=== PATIENT | female | born 1950 | race Caucasian/White ===

== ENCOUNTER → 2017-03-12 | Outpatient (CLI) | payer BC ==
[2013-08-30 17:34] VITALS: BP 139/60
== END ==
LOC: MAMMO 14:22
DX: Z12.31 Encounter for screening mammogram for malignant neoplasm of breast (principal)
CPT/HCPCS: G0202

== ENCOUNTER → 2017-03-14 | Outpatient (CLI) | payer BC ==
[2013-08-30 17:34] VITALS: BP 139/60
== END ==
LOC: LAB 10:03
DX: C50.411 Malignant neoplasm of upper-outer quadrant of right female breast (principal)

== ENCOUNTER 2018-03-06 09:31 | Observation (INO) | payer BC ==
[~2018-03-06] VITALS: Ht 165.1 cm; Wt 51.3 kg
[2018-03-06] MEDS ORDERED: DOXYCYCLINE MO100 M3 PO (09:37)
[2018-03-06] MEDS ORDERED: FLONASE ALLERG9.9 ML NS (09:37)
[2018-03-06] MEDS ORDERED: PREDNISONE20 M1 PO (09:37)
[2018-03-06] MEDS ORDERED: ZANTAC150 M1 PO (09:37)
[2018-03-06 10:42] LABS: URINE WBC 0 /hpf (0-3)
[2018-03-06 10:45] LABS: EOS % 0.2 % (1.0-5.0); HEMATOCRIT 38.4 % (37.0-47.0); HEMOGLOBIN 12.9 g/dL (12.5-16.0); MEAN CELL VOLUME 80 fl (78-100); MEAN CORPUSCULAR HEMOGLOBIN 27 pg (27-31); MEAN CORPUSCULAR HGB CONC 34 g/dL (33-37); MEAN PLATELET VOLUME 9.4 fl (7.4-10.4); MONO # 0.5 (0.20-0.80); NEU # 3.6 (1.40-6.50); PLATELET COUNT 215 K/mm3 (130-400); RED BLOOD COUNT 4.78 M/mm3 (4.10-5.30); RED CELL DISTRIBUTION WIDTH 13.2 % (11.5-14.5); WHITE BLOOD COUNT 4.8 K/mm3 (4.8-10.8)
[2018-03-06 10:55] LABS: ALBUMIN 4.5 g/dL (3.5-5.0); BUN/CREATININE RATIO 15.9 (6.0-26.0); CALCIUM 10.1 mg/dL (8.4-10.2); LYMPH# 0.6 (1.50-4.00); POTASSIUM 3.5 mmol/L (3.6-5.0); TOTAL BILIRUBIN 0.4 mg/dL (0.2-1.3); TOTAL PROTEIN 7.9 g/dL (6.3-8.2)
[2018-03-06 11:05] LABS: PH-URINE 7.5 (5.0 - 8.0); URINE APPEARANCE CLEAR; URINE BILIRUBIN NEGATIVE (NEGATIVE); URINE BLOOD NEGATIVE (NEGATIVE); URINE COLOR LT YELLOW; URINE GLUCOSE NEGATIVE (NEGATIVE); URINE KETONE NEGATIVE (NEGATIVE); URINE LEUKOCYTE ESTERASE NEGATIVE (NEGATIVE); URINE NITRATE NEGATIVE (NEGATIVE); URINE PROTEIN(semi-quant) TRACE mg/dL (NEGATIVE); URINE UROBILINOGEN NORMAL (NORMAL)
[2018-03-06 11:43] LABS: ERYTHROCYTE SEDIMENTATION RATE 12 mm/hr (0-30)
[2018-03-06 15:46] VITALS: BP 126/56
[2018-03-06 16:03] VITALS: BP 126/56
[2018-03-06 18:29] VITALS: BP 133/75
[2018-03-06 23:03] LABS: HEPATITIS C ANTIBODY Negative (())
[2018-03-06 23:04] VITALS: BP 123/75
[2018-03-07 03:13] VITALS: BP 123/66
[2018-03-07 06:40] VITALS: BP 147/69
[2018-03-07 07:47] LABS: HEMATOCRIT 37.6 % (37.0-47.0); HEMOGLOBIN 12.3 g/dL (12.5-16.0); LYMPH# 0.8 (1.50-4.00); MEAN CELL VOLUME 81 fl (78-100); MEAN CORPUSCULAR HEMOGLOBIN 27 pg (27-31); MEAN CORPUSCULAR HGB CONC 33 g/dL (33-37); MEAN PLATELET VOLUME 9.3 fl (7.4-10.4); MONO # 0.4 (0.20-0.80); NEU # 1.6 (1.40-6.50); PLATELET COUNT 193 K/mm3 (130-400); RED BLOOD COUNT 4.63 M/mm3 (4.10-5.30); RED CELL DISTRIBUTION WIDTH 13.5 % (11.5-14.5); WHITE BLOOD COUNT 2.9 K/mm3 (4.8-10.8)
[2018-03-07 08:00] LABS: BUN/CREATININE RATIO 12.4 (6.0-26.0); CALCIUM 9.5 mg/dL (8.4-10.2); POTASSIUM 3.9 mmol/L (3.6-5.0)
[2018-03-07 12:51] VITALS: BP 122/54
[2018-03-07 15:34] VITALS: BP 152/75
[2018-03-07 17:45] VITALS: BP 129/74
[2018-03-08 00:14] VITALS: BP 132/74
[2018-03-08 03:13] VITALS: BP 134/77
[2018-03-08 06:21] VITALS: BP 152/83
[2018-03-08 09:58] LABS: HEMATOCRIT 37.7 % (37.0-47.0); HEMOGLOBIN 12.4 g/dL (12.5-16.0); LYMPH# 0.8 (1.50-4.00); MEAN CELL VOLUME 81 fl (78-100); MEAN CORPUSCULAR HEMOGLOBIN 27 pg (27-31); MEAN CORPUSCULAR HGB CONC 33 g/dL (33-37); MEAN PLATELET VOLUME 9.5 fl (7.4-10.4); MONO # 0.4 (0.20-0.80); NEU # 2.2 (1.40-6.50); PLATELET COUNT 211 K/mm3 (130-400); RED BLOOD COUNT 4.63 M/mm3 (4.10-5.30); RED CELL DISTRIBUTION WIDTH 13.4 % (11.5-14.5); WHITE BLOOD COUNT 3.5 K/mm3 (4.8-10.8)
[2018-03-08 10:38] LABS: ALBUMIN 3.7 g/dL (3.5-5.0); BUN/CREATININE RATIO 8.8 (6.0-26.0); CALCIUM 9.4 mg/dL (8.4-10.2); POTASSIUM 3.7 mmol/L (3.6-5.0); TOTAL BILIRUBIN 0.3 mg/dL (0.2-1.3); TOTAL PROTEIN 6.6 g/dL (6.3-8.2)
[2018-03-08 11:10] VITALS: BP 133/70
== END 2018-03-08 13:46 | disposition home or self-care (01) ==
LOC: ED 09:31 → MED/SURG 15:42
PROVIDERS: Family Medicine; ADMIT Physician Assistant
DX: J32.0 Chronic maxillary sinusitis (principal); E86.9 Volume depletion, unspecified; R10.13 Epigastric pain; R10.11 Right upper quadrant pain; R63.0 Anorexia; K86.9 Disease of pancreas, unspecified; Z90.11 Acquired absence of right breast and nipple; R74.8 Abnormal levels of other serum enzymes; D72.821 Monocytosis (symptomatic); K21.9 Gastro-esophageal reflux disease without esophagitis; F41.9 Anxiety disorder, unspecified; E78.2 Mixed hyperlipidemia
CPT/HCPCS: G0378; J1650; J1885; J1956; J2405; J7120; Q9967

== ENCOUNTER 2018-03-08 16:35 | Emergency (ER) | payer BC ==
[~2018-03-08 16:35] MED LIST: DOXYCYCLINE MO100 M3 PO; FLONASE ALLERG9.9 ML NS; PREDNISONE20 M1 PO; ZANTAC150 M1 PO
[2018-03-08 17:48] LABS: HEMOGLOBIN 12.3 g/dL (12.5-16.0); MEAN CELL VOLUME 82 fl (78-100); MEAN CORPUSCULAR HEMOGLOBIN 27 pg (27-31); MEAN CORPUSCULAR HGB CONC 33 g/dL (33-37); MEAN PLATELET VOLUME 9.1 fl (7.4-10.4); PLATELET COUNT 226 K/mm3 (130-400); RED BLOOD COUNT 4.54 M/mm3 (4.10-5.30); RED CELL DISTRIBUTION WIDTH 13.3 % (11.5-14.5); WHITE BLOOD COUNT 4.2 K/mm3 (4.8-10.8)
[2018-03-08 18:00] LABS: PROTHROMBIN TIME 10.6 SECONDS (9.0-12.0)
[2018-03-08 18:02] LABS: LYMPHOCYTE 15 % (20-51); MONOCYTE 12 % (3-10); NEUTROPHILS 72 % (42-75)
[2018-03-08 20:20] VITALS: BP 154/71
== END 2018-03-08 20:20 | disposition short-term general hospital (02) ==
LOC: ED 16:35
PROVIDERS: Family Medicine
DX: S06.359A Traumatic hemorrhage of left cerebrum with loss of consciousness of unspecified duration, initial encounter (principal); W19.XXXA Unspecified fall, initial encounter; Y92.002 Bathroom of unspecified non-institutional (private) residence as the place of occurrence of the external cause; R40.2412 Glasgow coma scale score 13-15, at arrival to emergency department; J32.0 Chronic maxillary sinusitis; Z79.01 Long term (current) use of anticoagulants
CPT/HCPCS: Q9967

== ENCOUNTER → 2018-09-01 | Outpatient (CLI) | payer BC | LOC: MAMMO 08-11 13:45 | DX: Z12.31 Encounter for screening mammogram for malignant neoplasm of breast (principal) ==

== ENCOUNTER → 2018-11-26 | Outpatient (CLI) | payer BC ==
[2018-11-26 11:31] LABS: EOS # 0.1 (0.04-0.40); EOS % 1.8 % (1.0-5.0); HEMATOCRIT 38.8 % (37.0-47.0); HEMOGLOBIN 12.5 g/dL (12.5-16.0); LYMPH# 0.9 (1.50-4.00); MEAN CELL VOLUME 83 fl (78-100); MEAN CORPUSCULAR HEMOGLOBIN 27 pg (27-31); MEAN CORPUSCULAR HGB CONC 32 g/dL (33-37); MEAN PLATELET VOLUME 9.1 fl (7.4-10.4); MONO # 0.5 (0.20-0.80); NEU # 2.9 (1.40-6.50); PLATELET COUNT 262 K/mm3 (130-400); RED BLOOD COUNT 4.69 M/mm3 (4.10-5.30); RED CELL DISTRIBUTION WIDTH 13.8 % (11.5-14.5); WHITE BLOOD COUNT 4.4 K/mm3 (4.8-10.8)
[2018-11-26 12:03] LABS: ALBUMIN 4.6 g/dL (3.5-5.0); CALCIUM 10.1 mg/dL (8.4-10.2); POTASSIUM 4.1 mmol/L (3.6-5.0); TOTAL BILIRUBIN 0.4 mg/dL (0.2-1.3); TOTAL PROTEIN 7.3 g/dL (6.3-8.2)
[2018-11-26 12:32] LABS: PROTHROMBIN TIME 10.4 SECONDS (9.0-12.0)
[2018-11-26 12:33] LABS: D-DIMER 0.24 mg/L FEU (0.15-0.50)
== END ==
LOC: LAB 11:20
PROVIDERS: Family Medicine
DX: R07.9 Chest pain, unspecified (principal)

== ENCOUNTER → 2019-01-26 | Outpatient (CLI) | payer BC, MEDICARE ==
[2019-01-26 12:03] LABS: EOS % 1.2 % (1.0-5.0); HEMATOCRIT 38.4 % (37.0-47.0); HEMOGLOBIN 12.3 g/dL (12.5-16.0); MEAN CELL VOLUME 83 fl (78-100); MEAN CORPUSCULAR HEMOGLOBIN 27 pg (27-31); MEAN CORPUSCULAR HGB CONC 32 g/dL (33-37); MEAN PLATELET VOLUME 9.4 fl (7.4-10.4); MONO # 0.2 (0.20-0.80); NEU # 2.5 (1.40-6.50); PLATELET COUNT 210 K/mm3 (130-400); RED BLOOD COUNT 4.64 M/mm3 (4.10-5.30); RED CELL DISTRIBUTION WIDTH 14.3 % (11.5-14.5); WHITE BLOOD COUNT 3.4 K/mm3 (4.8-10.8)
[2019-01-26 12:06] LABS: LYMPH# 0.6 (1.50-4.00)
[2019-01-26 12:14] LABS: ALBUMIN 4.3 g/dL (3.5-5.0); TOTAL BILIRUBIN 0.4 mg/dL (0.2-1.3); TOTAL PROTEIN 7.1 g/dL (6.3-8.2)
[2019-01-26 12:42] LABS: URINE APPEARANCE CLEAR; URINE BILIRUBIN NEGATIVE (NEGATIVE); URINE BLOOD NEGATIVE (NEGATIVE); URINE COLOR YELLOW; URINE GLUCOSE NEGATIVE (NEGATIVE); URINE KETONE NEGATIVE (NEGATIVE); URINE LEUKOCYTE ESTERASE NEGATIVE (NEGATIVE); URINE NITRATE NEGATIVE (NEGATIVE); URINE PROTEIN(semi-quant) TRACE mg/dL (NEGATIVE); URINE UROBILINOGEN NORMAL (NORMAL); URINE WBC 0-1 /hpf (0-3)
== END ==
LOC: LAB 11:24
PROVIDERS: Family Medicine
DX: R10.11 Right upper quadrant pain (principal)

== ENCOUNTER → 2019-03-01 | Outpatient (CLI) | payer MEDICARE, BC | LOC: RAD 08:51 | DX: R10.11 Right upper quadrant pain (principal); Z90.49 Acquired absence of other specified parts of digestive tract ==

== ENCOUNTER → 2019-04-22 | Outpatient (CLI) | payer MEDICARE, BC ==
[2019-04-22 15:43] LABS: ALBUMIN 4.1 g/dL (3.4-4.8); TOTAL BILIRUBIN 0.2 mg/dL (0.2-1.2); TOTAL PROTEIN 6.9 g/dL (6.2-8.1)
== END ==
LOC: LAB 15:03
PROVIDERS: Internal Medicine Medical Oncology
DX: C50.411 Malignant neoplasm of upper-outer quadrant of right female breast (principal)

== ENCOUNTER → 2019-09-02 | Outpatient (CLI) | payer MEDICARE, BC | LOC: MAMMO 08:05 | DX: Z12.31 Encounter for screening mammogram for malignant neoplasm of breast (principal); N64.89 Other specified disorders of breast; C50.411 Malignant neoplasm of upper-outer quadrant of right female breast ==

== ENCOUNTER → 2019-09-09 | Outpatient (CLI) | payer MEDICARE, BC | LOC: MAMMO 11:45 | DX: R92.2 Inconclusive mammogram (principal) ==

== ENCOUNTER → 2020-04-17 | Outpatient (CLI) | payer MEDICARE, BC ==
[2020-04-18 09:17] LABS: ALBUMIN 4.3 g/dL (3.4-4.8); POTASSIUM 4.3 mmol/L (3.5-5.1)
[2020-04-18 09:19] LABS: TOTAL PROTEIN 6.5 g/dL (6.2-8.1)
[2020-04-18 09:21] LABS: TOTAL BILIRUBIN 0.3 mg/dL (0.2-1.2)
== END ==
LOC: LAB 08:56
PROVIDERS: Internal Medicine Medical Oncology
DX: C50.411 Malignant neoplasm of upper-outer quadrant of right female breast (principal)

== ENCOUNTER → 2020-09-12 | Outpatient (CLI) | payer MEDICARE, BC | LOC: MAMMO 08:22 | DX: Z12.31 Encounter for screening mammogram for malignant neoplasm of breast (principal); C50.411 Malignant neoplasm of upper-outer quadrant of right female breast; Z90.11 Acquired absence of right breast and nipple ==

== ENCOUNTER 2020-10-31 13:00 | Outpatient (RCR) | payer MEDICARE, BC | END 2020-11-13 | LOC: PT | DX: M25.511 Pain in right shoulder (principal); M54.6 Pain in thoracic spine; G89.29 Other chronic pain ==

== ENCOUNTER → 2020-11-24 | Outpatient (CLI) | payer MEDICARE, BC ==
[2020-11-24 12:31] LABS: EOS # 0.1 (0.04-0.40); EOS % 1.5 % (1.0-5.0); HEMATOCRIT 38.7 % (37.0-47.0); HEMOGLOBIN 12.2 g/dL (12.5-16.0); LYMPH# 0.9 (1.50-4.00); MEAN CELL VOLUME 83 fl (78-100); MEAN CORPUSCULAR HEMOGLOBIN 26 pg (27-31); MEAN CORPUSCULAR HGB CONC 32 g/dL (33-37); MEAN PLATELET VOLUME 8.9 fl (7.4-10.4); MONO # 0.4 (0.20-0.80); NEU # 3.2 (1.40-6.50); PLATELET COUNT 216 K/mm3 (130-400); RED BLOOD COUNT 4.65 M/mm3 (4.10-5.30); RED CELL DISTRIBUTION WIDTH 13.9 % (11.5-14.5); WHITE BLOOD COUNT 4.6 K/mm3 (4.8-10.8)
[2020-11-24 12:34] LABS: ALBUMIN 4.4 g/dL (3.4-4.8)
[2020-11-24 12:35] LABS: POTASSIUM 3.8 mmol/L (3.5-5.1)
[2020-11-24 12:36] LABS: CALCIUM 9.7 mg/dL (8.3-10.5)
[2020-11-24 12:37] LABS: TOTAL PROTEIN 6.8 g/dL (6.2-8.1); URINE APPEARANCE CLEAR; URINE BILIRUBIN NEGATIVE (NEGATIVE); URINE BLOOD TRACE (NEGATIVE); URINE COLOR YELLOW; URINE GLUCOSE NEGATIVE (NEGATIVE); URINE KETONE NEGATIVE (NEGATIVE); URINE LEUKOCYTE ESTERASE NEGATIVE (NEGATIVE); URINE NITRATE NEGATIVE (NEGATIVE); URINE PROTEIN(semi-quant) NEGATIVE (NEGATIVE); URINE UROBILINOGEN NORMAL (NORMAL)
[2020-11-24 12:39] LABS: TOTAL BILIRUBIN 0.5 mg/dL (0.2-1.2)
== END ==
LOC: RAD 12:10
PROVIDERS: Family Medicine
DX: R10.84 Generalized abdominal pain (principal); Z90.49 Acquired absence of other specified parts of digestive tract; Z90.710 Acquired absence of both cervix and uterus
CPT/HCPCS: Q9967

== ENCOUNTER → 2020-11-29 | Outpatient (CLI) | payer MEDICARE, BC | LOC: RAD 08:45 | DX: M25.511 Pain in right shoulder (principal) ==

== ENCOUNTER 2020-12-21 14:56 | Outpatient (RCR) | payer MEDICARE, BC | END 2021-02-08 17:00 | disposition home or self-care (01) | LOC: PT 14:56 | DX: M25.511 Pain in right shoulder (principal) ==

== ENCOUNTER → 2021-01-01 | Outpatient (CLI) | payer MEDICARE, BC | LOC: LAB 10:44 | DX: Z01.812 Encounter for preprocedural laboratory examination (principal); Z20.822 Contact with and (suspected) exposure to COVID-19 ==

== ENCOUNTER → 2021-01-04 | Day surgery (SDC) | payer MEDICARE, BC | LOC: MSO 08:53 | DX: K22.70 Barrett's esophagus without dysplasia (principal); K21.9 Gastro-esophageal reflux disease without esophagitis; R19.7 Diarrhea, unspecified; Z85.3 Personal history of malignant neoplasm of breast; Z79.899 Other long term (current) drug therapy; Z79.82 Long term (current) use of aspirin; Z90.11 Acquired absence of right breast and nipple | CPT/HCPCS: 00813; J2704; J7120 ==

== ENCOUNTER → 2021-04-16 | Outpatient (CLI) | payer MEDICARE, BC ==
[2021-04-17 10:25] LABS: ALBUMIN 4.1 g/dL (3.4-4.8)
[2021-04-17 10:26] LABS: POTASSIUM 4.1 mmol/L (3.5-5.1)
[2021-04-17 10:27] LABS: CALCIUM 9.5 mg/dL (8.3-10.5)
[2021-04-17 10:28] LABS: TOTAL PROTEIN 6.5 g/dL (6.2-8.1)
[2021-04-17 10:30] LABS: TOTAL BILIRUBIN 0.3 mg/dL (0.2-1.2)
== END ==
LOC: LAB 16:26
PROVIDERS: Internal Medicine Medical Oncology
DX: C50.411 Malignant neoplasm of upper-outer quadrant of right female breast (principal)

== ENCOUNTER → 2021-09-18 | Outpatient (CLI) | payer MEDICARE, BC | LOC: MAMMO 09:06 | DX: Z13.820 Encounter for screening for osteoporosis (principal); M81.0 Age-related osteoporosis without current pathological fracture ==

== ENCOUNTER → 2021-09-18 | Outpatient (CLI) | payer MEDICARE, BC | LOC: MAMMO 09:08 | DX: Z12.31 Encounter for screening mammogram for malignant neoplasm of breast (principal); C50.411 Malignant neoplasm of upper-outer quadrant of right female breast ==

== ENCOUNTER → 2022-06-06 | Outpatient (CLI) | payer MEDICARE, BC ==
[2022-06-06 16:58] LABS: ALBUMIN 4.3 g/dL (3.4-4.8); POTASSIUM 4.3 mmol/L (3.5-5.1)
[2022-06-06 17:00] LABS: CALCIUM 9.7 mg/dL (8.3-10.5)
[2022-06-06 17:01] LABS: TOTAL PROTEIN 6.5 g/dL (6.2-8.1)
[2022-06-06 17:03] LABS: TOTAL BILIRUBIN 0.2 mg/dL (0.2-1.2)
== END ==
LOC: LAB 16:14
PROVIDERS: Internal Medicine Medical Oncology
DX: C50.411 Malignant neoplasm of upper-outer quadrant of right female breast (principal)

== ENCOUNTER → 2023-02-04 | Outpatient (CLI) | payer MEDICARE, BC ==
[~2023-02-04] MED LIST changes: +CARAFATE1 GM/10 M1 PO; +HYOSCYAMINE0.125 M7 PO; +LIDOCAINE HC20 MG/M1 MM; +PANTOPRAZOLE SO40 MG PO; +PRAVASTATIN SOD40 MG PO; +PRILOSEC 20MG20 MG PO; +PROCARDIA XL30 M1 PO
== END ==
LOC: MAMMO 12-17 13:45
DX: Z12.31 Encounter for screening mammogram for malignant neoplasm of breast (principal); Z85.3 Personal history of malignant neoplasm of breast

== ENCOUNTER 2024-05-15 19:59 | Emergency (ER) | payer MEDICARE, BC ==
[~2024-05-15] VITALS: Ht 165.1 cm; Wt 54.5 kg
[2024-05-15 20:46] LABS: BASO # 0.01 K/mm3 (0.02-0.10); EOS # 0.01 K/mm3 (0.04-0.40); EOS % 0.2 % (1.0-5.0); HEMATOCRIT 38.7 % (37.0-47.0); LYMPH# 0.63 K/mm3 (1.50-4.00); MEAN CELL VOLUME 80 fl (78-100); MEAN CORPUSCULAR HEMOGLOBIN 27 pg (27-31); MEAN CORPUSCULAR HGB CONC 34 g/dL (33-37); MEAN PLATELET VOLUME 8.7 fl (7.4-10.4); MONO # 0.15 K/mm3 (0.20-0.80); PLATELET COUNT 239 K/mm3 (130-400); RED BLOOD COUNT 4.85 M/mm3 (4.10-5.30); RED CELL DISTRIBUTION WIDTH 12.5 % (11.5-14.5); WHITE BLOOD COUNT 5.3 K/mm3 (4.8-10.8)
[2024-05-15 20:53] LABS: ALBUMIN 4.4 g/dL (3.4-4.8)
[2024-05-15 20:54] LABS: CALCIUM 9.8 mg/dL (8.3-10.5)
[2024-05-15 20:56] LABS: TOTAL PROTEIN 6.9 g/dL (6.2-8.1)
[2024-05-15 20:57] LABS: TOTAL BILIRUBIN 0.7 mg/dL (0.2-1.2)
[2024-05-15] MEDS ORDERED: Ondansetron 4 MG/2 ML VIAL IV ONE (21:00)
[2024-05-15] MEDS ORDERED: D5NS 1,000 ML IV SCH (21:00)
[2024-05-15 21:04] LABS: URINE APPEARANCE CLEAR (CLEAR); URINE COLOR YELLOW (YELLOW)
[2024-05-15 21:05] LABS: PH-URINE 7.5 (5.0 - 8.0); URINE BILIRUBIN NEGATIVE (NEGATIVE); URINE BLOOD NEGATIVE (NEGATIVE); URINE GLUCOSE NEGATIVE (NEGATIVE); URINE KETONE 3+ (NEGATIVE); URINE LEUKOCYTE ESTERASE NEGATIVE (NEGATIVE); URINE NITRATE NEGATIVE (NEGATIVE); URINE PROTEIN(semi-quant) 1+ (NEGATIVE)
[2024-05-15 21:10] LABS: URINE WBC 0-1 /hpf (0-3)
[2024-05-15 21:11] LABS: URINE MUCUS PRESENT (NOT PRESENT)
[2024-05-15] MEDS ORDERED: Pantoprazole 40 MG in NS 10 ML IV ONE (21:30)
[2024-05-15] MEDS ORDERED: Acetaminophen 325 MG TAB PO ONE (21:45)
[2024-05-15] MEDS ORDERED: ZOFRAN ODT4 MG PO (23:16)
[2024-05-15 23:30] VITALS: BP 132/66
[2024-05-15] MEDS ORDERED: Home Ondansetron ODT 4 MG #2 ODT/PACK PO ONE (23:30)
== END 2024-05-15 23:33 | disposition home or self-care (01) ==
LOC: ED 19:59
PROVIDERS: Family Medicine
DX: A08.4 Viral intestinal infection, unspecified (principal); K22.70 Barrett's esophagus without dysplasia
CPT/HCPCS: J2405; J2470; J7042

== ENCOUNTER → 2024-06-28 | Outpatient (CLI) | payer MEDICARE, BC ==
[~2024-06-28] MED LIST changes: +ZOFRAN ODT4 MG PO
== END ==
LOC: MAMMO 10:33
DX: Z12.31 Encounter for screening mammogram for malignant neoplasm of breast (principal)

== ENCOUNTER → 2024-06-28 | Outpatient (CLI) | payer MEDICARE, BC ==
[~2024-06-28] MED LIST changes: +Iohexol 300 - 100 ML VIAL IV ONE
== END ==
LOC: RAD 11:05
DX: K31.9 Disease of stomach and duodenum, unspecified (principal); Z90.49 Acquired absence of other specified parts of digestive tract; Z90.710 Acquired absence of both cervix and uterus
CPT/HCPCS: Q9967

== ENCOUNTER → 2025-02-02 | Outpatient (CLI) | payer MEDICARE, BC ==
[~2025-02-02] MED LIST changes: -Iohexol 300 - 100 ML VIAL IV ONE
== END ==
LOC: RAD 08:46
DX: M16.0 Bilateral primary osteoarthritis of hip (principal)